=== PATIENT | female | born 1955 | race Hispanic/Latino ===

== ENCOUNTER 2024-04-16 03:05 | Emergency (ER) | payer OTHER ==
[2024-04-16] MEDS ORDERED: NA CHLORIDE 0.9% 1,000 ML ONE (04:41)
[2024-04-16 04:46] LABS: Absolute Eosinophils 0.1 K/uL (0-0.5); Absolute Lymphocytes (CBC) 0.3 K/uL (0.7-4.9); Absolute Monocytes 0.3 K/uL (0.1-1.3); Absolute Neutrophil 7.1 K/uL (1.8-8.0); Basophils % 0.4 % (0-1.3); Eosinophils % 1.4 % (0-4.4); Hematocrit 38.3 % (36.0-45.0); Lymphocytes % 4.4 % (15.3-44.8); MCH 29.5 pg (27.0-35.0); MCHC 33.8 g/dL (32.0-36.0); MCV 87.2 fL (80-100); MPV 7.7 fL (7.6-11.3); Monocytes % 4.1 % (3.3-12.3); Neutrophils % 89.7 % (41.7-73.7); Nucleated Red Blood Cells % 0.1 % (0-0); Platelets 331 thou/uL (152-406); Red Cell Distribution Width 15.5 % (12.1-15.2)
[2024-04-16] MEDS ORDERED: KETOROLAC 30 MG/ML INJ ONE (04:48)
[2024-04-16 05:21] LABS: Albumin 3.7 g/dL (3.4-5.0); Albumin/Globulin Ratio 0.8 (1.1-1.8); Anion Gap 8.2 mEq/L (5.0-15.0); Bilirubin Total 0.5 mg/dL (0.2-1.0); Globulin 4.8 g/dL (2.3-3.5); Potassium 3.2 mEq/L (3.5-5.1); Protein, Total 8.5 g/dL (6.4-8.2)
--- NOTE | 2024-04-16 06:43 | RAD REPORT ---
EXAM DESCRIPTION: CTAbdomen Pelvis W Contrast - 04/16/2024 6:00 am CLINICAL HISTORY: ABD PAIN COMPARISON: No comparisons TECHNIQUE: CT of the abdomen and pelvis was performed with IV contrast. All CT scans are performed using dose optimization technique as appropriate and may include automated exposure control or mA/KV adjustment according to patient size. FINDINGS: Lower chest: No acute abnormality. Liver: No acute abnormality or suspicious lesions. Biliary: Cholecystectomy Stomach: No significant focal abnormality. Duodenum: No significant focal abnormality. Pancreas: No significant abnormality. Spleen: No significant abnormality. Adrenal: No suspicious lesions. Kidney/ureter: No hydronephrosis. No renal calculi. Too small to characterize and/or benign appearing renal lesions are noted. Retroperitoneum: No retroperitoneal adenopathy. Vascular: No aneurysm. Bowel: Diverticulosis without diverticulitis.. Normal appendix. Peritoneum: No ascites or free air. Fat containing left inguinal hernia. Bladder: Grossly unremarkable. Reproductive: Hysterectomy Bones: No acute fracture. Multilevel degenerative changes are present in the spine. Other: n/a IMPRESSION: No acute intra-abdominal or pelvic finding.
--- NOTE | 2024-04-16 06:50 | ER ---
Nurse's Notes [facility] Name: Alison Bernal Age: 68 yrs Sex: Female : 1955 Arrival Date: 04/16/2024 Time: 03:05 Bed 18 Private MD: Diagnosis: Abdominal pain, Generalized Presentation: 04/16 03:40 Chief complaint: Patient states: stomach pain and vomiting and headache. Coronavirus vc1 screen: headache, nausea, vomiting. Client presents with at least one sign or symptom that may indicate coronavirus-19. Standard/surgical mask placed on the client. Provider contacted for isolation considerations. Ebola Screen: Patient negative for fever greater than or equal to 101.5 degrees Fahrenheit, and additional compatible Ebola Virus Disease symptoms Patient denies exposure to infectious person. Patient denies travel to an Ebola-affected area in the 21 days before illness onset. No symptoms or risks identified at this time. Initial Sepsis Screen: Does the patient meet any 2 criteria? No. Patient's initial sepsis screen is negative. Does the patient have a suspected source of infection? No. Patient's initial sepsis screen is negative. Risk Assessment: Do you want to hurt yourself or someone else? Patient reports no desire to harm self or others. Onset of symptoms was April 15, 2024. Care prior to arrival: Medication(s) given: dexona 0.5 mg. 03:40 Method Of Arrival: Wheelchair vc1 03:40 Acuity: RAYMOND 3 vc1 Triage Assessment: 05:33 GI: Reports cramping, nausea. jw7 Historical: - Allergies: 03:42 No Known Allergies; vc1 - Home Meds: 03:42 losartan 50 mg oral tablet [Active]; meloxicam 15 mg oral tablet [Active]; vc1 - PMHx: 03:42 Hypertensive disorder; vc1 - PSHx: 03:42 right eye surgery; vc1 - Immunization history:: Adult Immunizations unknown. - Infectious Disease History:: Denies. - Social history:: Smoking status: Patient denies any tobacco usage or history of. Screenin:10 [facility] ED Fall Risk Assessment (Adult) History of falling in the last 3 months, jw7 including since admission No falls in past 3 months (0 pts) Confusion or Disorientation No (0 pts) Intoxicated or Sedated No (0 pts) Impaired Gait No (0 pts) Mobility Assist Device Used No (0 pt) Altered Elimination No (0 pt) Score/Fall Risk Level 0 - 2 = Low Risk Oriented to surroundings, Maintained a safe environment, Educated pt \T\ family on fall prevention, incl call for assistance when getting out of bed. Abuse screen: Denies threats or abuse. Denies injuries from another. Nutritional screening: No deficits noted. Tuberculosis screening: No symptoms or risk factors identified. Assessment: 04:10 General: Appears in no apparent distress. uncomfortable, Behavior is calm, cooperative, jw7 appropriate for age. Pain: Complains of pain in abdomen Pain does not radiate. Pain currently is 6 out of 10 on a pain scale. Quality of pain is described as crampy, Pain began suddenly, Is continuous. Neuro: Level of Consciousness is awake, alert, obeys commands, Oriented to person, place, time, situation, Appropriate for age. Cardiovascular: Heart tones S1 S2 present Capillary refill < 3 seconds Clubbing of nail beds is absent JVD is absent Patient's skin is warm and dry. Respiratory: Airway is patent Trachea midline Respiratory effort is even, unlabored, Respiratory pattern is regular, symmetrical. GI: Abdomen is round non-distended, obese, Bowel sounds present X 4 quads. Abd is soft Abdomen is tender to palpation Parent/caregiver reports the patient having cramping, nausea. : No deficits noted. No signs and/or symptoms were reported regarding the genitourinary system. EENT: No deficits noted. No signs and/or symptoms were reported regarding the EENT system. Derm: Skin is intact, is healthy with good turgor, Skin is dry, Skin is normal, Skin temperature is warm. Musculoskeletal: Circulation, motion, and sensation intact. Range of motion: intact in all extremities. 05:00 Reassessment: Patient appears in no apparent distress at this time. Patient and/or jw7 family updated on plan of care and expected duration. Pain level reassessed. Patient is alert, oriented x 3, equal unlabored respirations, skin warm/dry/pink. 06:00 Reassessment: Patient appears in no apparent distress at this time. Patient and/or jw7 family updated on plan of care and expected duration. Pain level reassessed. Patient is alert, oriented x 3, equal unlabored respirations, skin warm/dry/pink. 07:09 Reassessment: Patient appears in no apparent distress at this time. Patient and/or jw7 family updated on plan of care and expected duration. Pain level reassessed. Patient is alert, oriented x 3, equal unlabored respirations, skin warm/dry/pink. Vital Signs: 03:40 Height 5 ft. 6 in. ; vc1 03:46 BP 181 / 87; Pulse 67; Resp 15; Temp 97.7; Pulse Ox 94% ; vc1 05:00 BP 179 / 84; Pulse 68; Resp 17 S; Pulse Ox 95% on R/A; jw7 06:00 BP 180 / 86; Pulse 70; Resp 16 S; Pulse Ox 94% on R/A; jw7 07:11 BP 182 / 85; Pulse 68; Resp 16 S; Temp 97.8(O); Pulse Ox 96% on R/A; jw7 ED Course: 03:13 Patient arrived in ED. gm2 03:24 Stanley Tang MD is Attending Physician. ec2 03:42 Triage completed. vc1 03:45 Arm band placed on left wrist. vc1 04:10 Patient has correct armband on for positive identification. Bed in low position. Call jw7 light in reach. Side rails up X2. Provided Education on: Use of Call Light. 04:28 Nicole Zuleta, RN is Primary Nurse. jw7 04:33 Inserted saline lock: 20 gauge in right antecubital area, using aseptic technique. oe Blood collected. 04:34 CBC with Diff Sent. oe 04:34 CMP Sent. oe 04:34 Lipase Sent. oe 05:33 No provider procedures requiring assistance completed. jw7 06:00 CT Abd/Pelvis - IV Contrast Only In Process Unspecified. EDMS 07:11 IV discontinued, intact, bleeding controlled, No redness/swelling at site. Pressure jw7 dressing applied. Administered Medications: 04:53 Drug: NS 0.9% IV 1000 ml IV at 1 bolus Per protocol; 1000 mL bolus Route: IV; Rate: 1 jw7 bolus; Site: right antecubital; 07:12 Follow up: Response: No adverse reaction; IV Status: Completed infusion; IV Intake: jw7 1000ml 04:53 Drug: Droperidol IVP 2.5 mg IVP once Route: IVP; Site: right antecubital; jw7 07:11 Follow up: Response: No adverse reaction; Marked relief of symptoms jw7 04:53 Drug: Ketorolac IVP 15 mg IVP once Route: IVP; Site: right antecubital; jw7 07:11 Follow up: Response: No adverse reaction; Marked relief of symptoms jw7 Medication: 05:33 VIS not applicable for this client. jw7 Intake: 07:12 IV: 1000ml; Total: 1000ml. jw7 Outcome: 06:49 Discharge ordered by . jennifer 07:11 Discharged to home via wheelchair, jw7 07:11 Condition: stable 07:11 Discharge instructions given to patient, family, Instructed on discharge instructions, follow up and referral plans. medication usage, Demonstrated understanding of instructions, follow-up care, medications, Prescriptions given X 1, 07:12 Patient left the ED. jw7 Signatures: Dispatcher [employer] EDSony Pool Vanessa, RN RN vc1 Nicole Zuleta RN RN jw7 Stanley Tang MD MD ec2 Eve Silva 2
--- NOTE | 2024-04-16 06:51 | EDPHYS ---
Physician Documentation [facility] Name: Alison Bernal Age: 68 yrs Sex: Female : 1955 Arrival Date: 04/16/2024 Time: 03:05 Bed 18 Private MD: ED Physician Stanley Tang HPI: 04/16 03:51 This 68 yrs old Female presents to ER via Wheelchair with complaints of ec2 Nausea/Vomiting, Headache, Abdominal Pain. 03:51 Patient arrives today for evaluation of generalized abdominal pain with associated ec2 nausea and vomiting. Reports history of , previous gallbladder resection, complains of generalized abdominal pain, decreased p.o. intake along with nausea and vomiting that started today. States that she also feels constipated. Patient reports increased urinary frequency as well.. Historical: - Allergies: 03:42 No Known Allergies; vc1 - Home Meds: 03:42 losartan 50 mg oral tablet [Active]; meloxicam 15 mg oral tablet [Active]; vc1 - PMHx: 03:42 Hypertensive disorder; vc1 - PSHx: 03:42 right eye surgery; vc1 - Immunization history:: Adult Immunizations unknown. - Infectious Disease History:: Denies. - Social history:: Smoking status: Patient denies any tobacco usage or history of. ROS: 03:51 Constitutional: as per hpi ec2 Exam: 03:51 Constitutional: GEN: NAD Head: atraumatic Eyes: EOMI Ears: External ears are ec2 normal. CV: regular rate LUNGS: no respiratory distress ABD: Obese, generalized TTP, no guarding, no rigidity SKIN: no evidence of rashes MSK: no evidence of trauma NEURO: moves all extremities equally Vital Signs: 03:40 Height 5 ft. 6 in. ; vc1 03:46 BP 181 / 87; Pulse 67; Resp 15; Temp 97.7; Pulse Ox 94% ; vc1 05:00 BP 179 / 84; Pulse 68; Resp 17 S; Pulse Ox 95% on R/A; jw7 06:00 BP 180 / 86; Pulse 70; Resp 16 S; Pulse Ox 94% on R/A; jw7 07:11 BP 182 / 85; Pulse 68; Resp 16 S; Temp 97.8(O); Pulse Ox 96% on R/A; jw7 MDM: 03:51 Data reviewed: vital signs. ED course: Patient arrives today for generalized abdominal ec2 pain associated nausea and vomiting. Examination markable for abdominal findings noted above. Will obtain lab work, CT imaging and treat the patient. Differential ddx includes gastroenteritis, urinary tract infection, small bowel obstruction. 03:52 Patient medically screened. ec2 05:27 ED course: Metabolic profile shows slight hypokalemia with potassium of 3.2. Lipase ec2 within normal ranges, CBC is reassuring. Pending urine studies and CT imaging. . 06:44 ED course: CT abdomen pelvis shows no acute intra-abdominal process.. ec2 06:49 ED course: Patient states that she had already urinated no longer wants to provide a ec2 urine specimen, does not feel she has a urine infection. Will discharge home. Return precautions given. Reassessment patient is well-appearing no acute distress.. 04/16 03:51 Order name: CBC with Diff ec2 04/16 03:51 Order name: CMP; Complete Time: 05:27 ec2 04/16 03:51 Order name: Lipase; Complete Time: 05:27 ec2 04/16 05:01 Order name: CBC Smear Scan EDMS 04/16 03:51 Order name: CT Abd/Pelvis - IV Contrast Only; Complete Time: 06:44 ec2 04/16 03:51 Order name: IV Saline Lock; Complete Time: 04:34 ec2 04/16 03:51 Order name: Labs collected and sent; Complete Time: 04:34 ec2 Administered Medications: 04:53 Drug: NS 0.9% IV 1000 ml IV at 1 bolus Per protocol; 1000 mL bolus Route: IV; Rate: 1 jw7 bolus; Site: right antecubital; 07:12 Follow up: Response: No adverse reaction; IV Status: Completed infusion; IV Intake: jw7 1000ml 04:53 Drug: Droperidol IVP 2.5 mg IVP once Route: IVP; Site: right antecubital; jw7 07:11 Follow up: Response: No adverse reaction; Marked relief of symptoms jw7 04:53 Drug: Ketorolac IVP 15 mg IVP once Route: IVP; Site: right antecubital; jw7 07:11 Follow up: Response: No adverse reaction; Marked relief of symptoms jw7 Disposition Summary: 04/16/24 06:49 Discharge Ordered Notes: Location: Home ec2 Condition: Stable ec2 Diagnosis - Abdominal pain, Generalized ec2 Followup: ec2 - With: Private Physician - When: - Reason: Re-evaluation by your physician Discharge Instructions: - Discharge Summary Sheet ec2 - Abdominal Pain, Adult ec2 Forms: - Medication Reconciliation Form ec2 - Antibiotic Education ec2 - Prescription Opioid Use ec2 - Patient Portal Instructions ec2 - Leadership Thank You Letter ec2 Prescriptions: - Compazine 10 mg Oral Tablet - take 1 tablet ORAL route every 8 hours As needed; 10 tablet; Refills: 0, ec2 Product Selection Permitted Signatures: Dispatcher [employer] EDMS Nelida Marie RN RN vc1 Nicole Zuleta RN RN jw7 Stanley Tang MD MD ec2 Corrections: (The following items were deleted from the chart) 03:51 03:51 CBC+H.LAB.BRZ ordered. EDMS EDMS 03:51 03:51 COMPREHENSIVE METABOLIC PANEL+C.LAB.BRZ ordered. EDMS EDMS 03:51 03:51 LIPASE+C.LAB.BRZ ordered. EDMS EDMS 03:51 03:51 Urinalysis+U.LAB.BRZ ordered. EDMS EDMS 03:51 03:51 Abdomen Pelvis W Con+CT.RAD.BRZ ordered. EDMS EDMS
[2024-04-16 07:47] VITALS: BP 182/85; TEMP 97.8; O2SAT 96
[2024-04-16 08:25] LABS: Platelet Estimate ADEQ; White Blood Cell Scan OK (OK)
[2024-04-16 08:26] LABS: Blood Morphology Comment NOT SEEN (NOT SEEN)
== END 2024-04-16 07:12 | disposition home or self-care (01) ==
LOC: ER 03:05
DX: R10.84 Generalized abdominal pain (principal); R11.2 Nausea with vomiting, unspecified
CPT/HCPCS: 85025; 36415; 83690; 80053; 74177; Q9967; J7030; 96361; 96374; 96375; 99284